=== PATIENT | male | born 1970 | race Caucasian/White ===

== ENCOUNTER 2017-08-11 19:27 | Emergency (ER) | payer OTHER ==
[2017-08-11] MEDS ORDERED: Azithromycin 250 MG TAB ONE (20:28)
[2017-08-11] MEDS ORDERED: diphenhydrAMINE 25 MG CAP ONE (20:28)
[2017-08-11] MEDS ORDERED: Ondansetron ODT 8 MG TAB ONE (20:28)
== END 2017-08-11 20:56 | disposition home or self-care (01) ==
LOC: ERS 19:27
DX: L50.9 Urticaria, unspecified (principal); R19.7 Diarrhea, unspecified; I10 Essential (primary) hypertension; E11.9 Type 2 diabetes mellitus without complications; E78.5 Hyperlipidemia, unspecified; F41.9 Anxiety disorder, unspecified; Z79.84 Long term (current) use of oral hypoglycemic drugs; Z79.899 Other long term (current) drug therapy
CPT/HCPCS: 36416; 99284

== ENCOUNTER 2022-05-06 08:50 | Outpatient (CLI) | payer BC ==
[2022-05-06 10:02] LABS: Bilirubin Neg (Negative); Blood, Urine Negative (Negative); Clarity Clear (Clear); Glucose, Urine (Dipstick) Normal (Negative); Ketone, Urine Negative (Negative); Leukocyte 25 (Negative); Nitrite Negative (Negative); Protein, Urine (Dipstick) Negative (Neg-Trace); Urobilinogen Normal mg/dL (Less than 2)
[2022-05-06 10:06] LABS: Hemoglobin 15.4 g/dL (13.5-17.5); Mean Corpuscular HGB CONC 35.4 g/dL (32.0-36.0); Mean Corpuscular Hemoglobin 31.4 pg (27.0-33.0); Mean Corpuscular Volume 88.8 fl (81.2-95.1); Mean Platelet Volume 9.1 fl (7.4-10.4); Platelet Count 233 10x3/uL (150-450); RBC Distribution Width 12.5 % (11.5-14.5); White Blood Cell (WBC) Count 8.4 10x3/uL (3.5-10.5)
[2022-05-06 10:09] LABS: Bacteria/HPF Rare-Few HPF (None Seen); RBC/HPF 0-3 HPF (0-3); Squamous Epithelial 0-3 HPF (0-3); WBC/HPF 0-3 HPF (0-3)
[2022-05-06 10:17] LABS: INR-International Normal Ratio 0.9; PTT 25.2 sec (22.0-33.0); Prothrombin Time 9.9 sec (9.5-12.1)
[2022-05-06 10:42] LABS: Anion Gap 13 mmol/L (10-20); BUN (Urea Nitrogen) 18 mg/dL (8.4-25.7); Calc. Creatinine Clearance 0 mL/min (70-130); Calcium 9.5 mg/dL (7.8-10.44); Carbon Dioxide 23 mmol/L (22-29); Chloride 105 mmol/L (98-107); Estimated GFR 82; Glucose 150 mg/dL (70-105); Potassium 4.5 mmol/L (3.5-5.1); Sodium 136 mmol/L (136-145)
== END 2022-05-06 08:51 | disposition home or self-care (01) ==
LOC: LABBT 08:50
PROVIDERS: ATTEND Urology
DX: Z01.818 Encounter for other preprocedural examination (principal); N20.0 Calculus of kidney; Z20.822 Contact with and (suspected) exposure to COVID-19
CPT/HCPCS: 80048; 81001; 85027; 85610; 85730; 87086; 87811; 93005; 93010

== ENCOUNTER 2022-05-11 06:23 | Day surgery (SDC) | payer BC ==
[2022-05-09 13:55] VITALS: BMI 30.4
[2022-05-11] MEDS ORDERED: Iopamidol 15 ML ONE (08:45)
[2022-05-11] MEDS ORDERED: HYDROmorphone 0.5 MG/0.5 ML SYRINGE ONE (08:48)
[2022-05-11] MEDS ORDERED: Midazolam HCl 2 mg/2 ml Vial ONE (08:48)
[2022-05-11] MEDS ORDERED: SUGAMMADEX SODIUM 200 MG/2 ML VIAL ONE (08:48)
[2022-05-11] MEDS ORDERED: Fentanyl 100 MCG/2 ML VIAL ONE ×2 (08:48→10:50)
[2022-05-11] MEDS ORDERED: Levofloxacin 500 mg/D5W 100 ml Premix Bag ONE (09:01)
[2022-05-11] MEDS ORDERED: Rocuronium Bromide 10 MG/ML (10ML VIAL) ONE (09:07)
[2022-05-11] MEDS ORDERED: Ondansetron PF 4 MG/2 ML Vial ONE ×2 (09:07→11:17)
[2022-05-11] MEDS ORDERED: Glycopyrrolate 0.2 MG/ML 5 ML SYRINGE ONE (09:07)
[2022-05-11] MEDS ORDERED: Dexamethasone 20 MG/5 ML VIAL ONE (09:07)
[2022-05-11] MEDS ORDERED: PROPOFOL 200 MG/20 ML VIAL ONE (09:07)
[2022-05-11] MEDS ORDERED: Lidocaine 1% MPF 2 ML VIAL ONE (09:07)
[2022-05-11] MEDS ORDERED: Neostigmine Methylsulfate 3 MG/3 ML SYRINGE ONE (09:07)
[2022-05-11] MEDS ORDERED: Succinylcholine 200 MG/10 ml SYRINGE FS ONE (09:07)
[2022-05-11] MEDS ORDERED: Phenazopyridine HCl 100 MG TAB ONE (10:58)
[2022-05-11] MEDS ORDERED: Morphine 2 MG/ML VIAL ONE (11:54)
== END 2022-05-11 13:46 | disposition home or self-care (01) ==
LOC: SDC 06:23
PROVIDERS: ATTEND Urology
PROC: 0T778DZ Dilation of Left Ureter with Intraluminal Device, Via Natural or Artificial Opening Endoscopic (ICD-10-PCS; principal; 2022-05-11)
PROC: 0TC48ZZ Extirpation of Matter from Left Kidney Pelvis, Via Natural or Artificial Opening Endoscopic (ICD-10-PCS; principal; 2022-05-11)
DX: N20.0 Calculus of kidney (principal); N28.1 Cyst of kidney, acquired; N40.1 Benign prostatic hyperplasia with lower urinary tract symptoms; R39.12 Poor urinary stream; Z79.84 Long term (current) use of oral hypoglycemic drugs; Z79.899 Other long term (current) drug therapy; E11.9 Type 2 diabetes mellitus without complications; I10 Essential (primary) hypertension; E78.00 Pure hypercholesterolemia, unspecified; F17.210 Nicotine dependence, cigarettes, uncomplicated; N52.9 Male erectile dysfunction, unspecified; F10.20 Alcohol dependence, uncomplicated
CPT/HCPCS: 74018; 82365; 88300; C1769; C2617; J1100; J1170; J1956; J2250; J2270; J2405; J2704; J3010; Q9967

== ENCOUNTER 2022-05-18 09:17 | Outpatient (CLI) | payer BC | END 2022-05-18 09:18 | disposition home or self-care (01) | LOC: BICRAD 09:17 | PROVIDERS: ATTEND Urology | DX: N20.0 Calculus of kidney (principal); Z96.0 Presence of urogenital implants | CPT/HCPCS: 74018 ==